=== PATIENT | female | born 1990 | race Caucasian/White ===

== ENCOUNTER → 2020-02-23 | Outpatient (CLI) | payer OTHER ==
[~2020-02-23] MED LIST: COLACE 100MG C100 MG PO; CYCLOBENZAPRINE10 MG PO; HYDROCODONE-AC1 EACH PO; IBUPROFEN600 MG PO; NORCO 10-325 T1 EACH PO; NORCO 5-325 TA1 EACH PO; ONE A DAY VITAMIN PO; OXYCODONE HCL5 MG PO
[2020-02-23 10:25] LABS: HEMOGLOBIN 14.3 gm/dl (12.3-15.3); RED BLOOD COUNT 4.63 M/UL (4.00-5.10); WHITE BLOOD COUNT 8.8 K/UL (4.5-11.0)
== END ==
LOC: OPSV2 09:00
PROVIDERS: Obstetrics & Gynecology
DX: Z01.812 Encounter for preprocedural laboratory examination (principal); N92.0 Excessive and frequent menstruation with regular cycle
CPT/HCPCS: 36415; 81001; 85025

== ENCOUNTER 2020-03-03 06:40 | Day surgery (SDC) | payer OTHER ==
[~2020-03-03] VITALS: Ht 154.9 cm; Wt 63.5 kg
[~2020-03-03 06:40] MED LIST changes: -CYCLOBENZAPRINE10 MG PO; -HYDROCODONE-AC1 EACH PO; -ONE A DAY VITAMIN PO; -OXYCODONE HCL5 MG PO
[2020-03-03] MEDS ORDERED: ONE A DAY VITAMIN PO (07:23)
[2020-03-03] MEDS ORDERED: IBUPROFEN600 MG PO (10:08)
[2020-03-03] MEDS ORDERED: COLACE 100MG C100 MG PO (10:08)
[2020-03-03] MEDS ORDERED: OXYCODONE HCL5 MG PO (10:08)
[2020-03-03 14:28] LABS: HEMOGLOBIN 13.9 gm/dl (12.3-15.3)
== END 2020-03-03 19:30 | disposition home or self-care (01) ==
LOC: OR 06:40 → M/S 11:05 → OR 11:05 → M/S 11:05 → OR 19:30
PROVIDERS: Obstetrics & Gynecology
PROC: 0UT94ZZ Resection of Uterus, Percutaneous Endoscopic Approach (ICD-10-PCS; principal; 2020-03-03 08:00)
DX: N72 Inflammatory disease of cervix uteri (principal); N88.0 Leukoplakia of cervix uteri; N92.1 Excessive and frequent menstruation with irregular cycle; I10 Essential (primary) hypertension; F17.210 Nicotine dependence, cigarettes, uncomplicated; G43.909 Migraine, unspecified, not intractable, without status migrainosus; M35.00 Sjogren syndrome, unspecified; R12 Heartburn; F32.9 Major depressive disorder, single episode, unspecified; F41.9 Anxiety disorder, unspecified; Z88.5 Allergy status to narcotic agent; Z91.018 Allergy to other foods; Z79.899 Other long term (current) drug therapy; Z20.822 Contact with and (suspected) exposure to COVID-19
CPT/HCPCS: 36415; 84703; 85014; 85018; G0378; J0690; J1100; J1170; J1885; J2001; J2250; J2370; J2405; J2704; J2710; J2765; J2795; J3010; J7120

== ENCOUNTER 2020-05-27 08:52 | Emergency (ER) | payer OTHER ==
[~2020-05-27 08:52] MED LIST changes: +ONE A DAY VITAMIN PO; +OXYCODONE HCL5 MG PO
[2020-05-27] MEDS ORDERED: HYDROCODONE-AC1 EACH PO (15:23)
== END 2020-05-27 10:45 | disposition home or self-care (01) ==
LOC: ER1 08:52
DX: S62.613A Displaced fracture of proximal phalanx of left middle finger, initial encounter for closed fracture (principal); Y93.61 Activity, american tackle football; F17.210 Nicotine dependence, cigarettes, uncomplicated; Y92.009 Unspecified place in unspecified non-institutional (private) residence as the place of occurrence of the external cause; Z90.710 Acquired absence of both cervix and uterus
CPT/HCPCS: 29130; 73130; 99283

== ENCOUNTER 2020-07-12 12:47 | Inpatient (IN) | payer OTHER ==
[~2020-07-12] VITALS: Ht 152.4 cm; Wt 63.5 kg
[~2020-07-12 12:47] MED LIST changes: +HYDROCODONE-AC1 EACH PO
[2020-07-12 13:52] LABS: HEMOGLOBIN 13.7 gm/dl (12.3-15.3); RED BLOOD COUNT 4.32 M/UL (4.00-5.10); WHITE BLOOD COUNT 10.7 K/UL (4.5-11.0)
[2020-07-12 14:27] LABS: BUN/CREATININE RATIO 18 (0-10)
[2020-07-13] MEDS ORDERED: CYCLOBENZAPRINE10 MG PO (03:50)
[2020-07-13 07:29] LABS: RED BLOOD COUNT 4.15 M/UL (4.00-5.10)
[2020-07-13 07:33] LABS: WHITE BLOOD COUNT 13.4 K/UL (4.5-11.0)
[2020-07-13 13:48] LABS: HEMOGLOBIN 12.1 gm/dl (12.3-15.3)
[2020-07-14] MEDS ORDERED: COLACE 100MG C100 MG PO (10:38)
[2020-07-14] MEDS ORDERED: OXYCODONE HCL5 MG PO (10:38)
== END 2020-07-14 12:06 | disposition home or self-care (01) | DRG 909 ==
LOC: ER1 12:47 → CDU 20:29 → M/S 07-13 03:27
PROVIDERS: Obstetrics & Gynecology; Physician Assistant; ADMIT Surgery Trauma Surgery
PROC: 0DBB4ZZ Excision of Ileum, Percutaneous Endoscopic Approach (ICD-10-PCS; 2020-07-12 21:36)
PROC: 0UQG4ZZ Repair Vagina, Percutaneous Endoscopic Approach (ICD-10-PCS; principal; 2020-07-13)
PROC: 0TJB8ZZ Inspection of Bladder, Via Natural or Artificial Opening Endoscopic (ICD-10-PCS; 2020-07-13)
DX: T81.32XA Disruption of internal operation (surgical) wound, not elsewhere classified, initial encounter (principal); Q43.0 Meckel's diverticulum (displaced) (hypertrophic); K21.9 Gastro-esophageal reflux disease without esophagitis; Z20.822 Contact with and (suspected) exposure to COVID-19; Y83.8 Other surgical procedures as the cause of abnormal reaction of the patient, or of later complication, without mention of misadventure at the time of the procedure; K58.1 Irritable bowel syndrome with constipation; K66.8 Other specified disorders of peritoneum; T81.89XA Other complications of procedures, not elsewhere classified, initial encounter; Z90.49 Acquired absence of other specified parts of digestive tract; Z90.710 Acquired absence of both cervix and uterus; Z98.891 History of uterine scar from previous surgery
CPT/HCPCS: 36415; 71045; 74019; 80053; 81001; 82550; 82553; 83690; 83874; 84484; 85014; 85018; 85025; 85379; 93005; 96374; 96375; 99285; J1100; J1170; J1644; J1885; J1956; J2001; J2250; J2405; J2543; J2704; J2710; J3010; J7030; J7120; Q9967; U0002

== ENCOUNTER → 2021-10-04 | Outpatient (CLI) | payer OTHER ==
[~2021-10-04] MED LIST changes: +CYCLOBENZAPRINE10 MG PO
== END ==
LOC: EXRD 09:29
DX: M54.2 Cervicalgia (principal); M54.50 Low back pain, unspecified
CPT/HCPCS: 72040; 72100